=== PATIENT | female | born 1985 | race Caucasian/White ===

== ENCOUNTER 2023-12-06 09:42 | Outpatient (CLI) | payer BC ==
[2023-12-06 10:21] LABS: BASOPHILS % (AUTO) 0.6 % (0-1); EOSINOPHILS % (AUTO) 0.8 % (0-6); HEMATOCRIT 42.1 % (35.0-45.0); LYMPHOCYTES # (AUTO) 1.9 X10'3 (1.1-4.8); LYMPHOCYTES % (AUTO) 31.4 % (21-51); MEAN CORPUSCULAR HEMOGLOBIN 28.2 PG (27.0-31.0); MEAN CORPUSCULAR HGB CONC 33.1 g/dL (33.0-36.5); MEAN PLATELET VOLUME 8.3 FL (7.4-10.4); MONOCYTES # (AUTO) 0.3 X10'3 (0-0.9); MONOCYTES % (AUTO) 5.6 % (2-12); NEUTROPHILS # (AUTO) 3.6 X10'3 (1.8-7.7); NEUTROPHILS % (AUTO) 61.6 % (42-75); PLATELET COUNT 238 X10'3 (140-440); RED BLOOD COUNT 4.96 X10'6 (4.20-5.60); RED CELL DISTRIBUTION WIDTH 14.2 % (11.5-14.5); WHITE BLOOD COUNT 5.9 X10'3 (4.5-11.0)
[2023-12-06 10:33] LABS: HEMOGLOBIN A1C 5.5 % (4.5-6.2)
[2023-12-06 10:40] LABS: ALANINE AMINOTRANSFERASE 24 U/L (12-78); ALBUMIN 3.8 G/DL (3.4-5.0); ALBUMIN/GLOBULIN RATIO 1.1 (1.1-1.5); ALKALINE PHOSPHATASE 59 IU/L (46-116); ANION GAP 8 (8-16); ASPARTATE AMINO TRANSFERASE 20 U/L (10-37); BILIRUBIN,TOTAL 0.5 MG/DL (0.1-1.0); BLOOD UREA NITROGEN 14 MG/DL (7-18); BUN/CREATININE RATIO 17.9 (10.0-20.0); CHLORIDE 105 MMOL/L (99-107); CHOL/HDL RATIO 4.1 (0.00-4.99); CHOLESTEROL 211 MG/DL (0-200); CREATININE 0.78 MG/DL (0.40-0.90); GLUCOSE 108 MG/DL (70-104); HDL CHOLESTEROL 52 MG/DL (35-60); LDL CHOLESTEROL 134 MG/DL (50-100); POTASSIUM 3.9 MMOL/L (3.5-5.1); SODIUM 138 MMOL/L (135-145); THYROID STIMULATING HORMONE 2.45 ulU/ml (0.34-4.50); TOTAL CARBON DIOXIDE 25.3 MMOL/L (24-32); TOTAL PROTEIN 7.3 G/DL (6.4-8.2); TRIGLYCERIDES 87 MG/DL (20-135); eGFR 84 ML/MIN
== END 2023-12-06 23:59 | disposition home or self-care (01) ==
LOC: LAB 09:42
PROVIDERS: ATTEND Family Medicine
DX: E66.9 Obesity, unspecified (principal); J45.990 Exercise induced bronchospasm; Z82.49 Family history of ischemic heart disease and other diseases of the circulatory system
CPT/HCPCS: 36415; 80053; 80061; 83036; 84443; 85025

== ENCOUNTER 2024-01-10 14:30 | Outpatient (CLI) | payer BC | END 2024-01-10 23:59 | disposition home or self-care (01) | LOC: MRI02 14:30 | PROVIDERS: ATTEND Student in an Organized Health Care Education/Training Program | DX: M71.21 Synovial cyst of popliteal space [Baker], right knee (principal); M94.261 Chondromalacia, right knee; M25.361 Other instability, right knee; M25.561 Pain in right knee; Z87.828 Personal history of other (healed) physical injury and trauma | CPT/HCPCS: 73721 ==

== ENCOUNTER 2024-01-31 11:20 | Outpatient (CLI) | payer BC ==
[2024-01-31 12:46] LABS: FREE T4 (FREE THYROXINE) 1.02 NG/DL (0.73-1.40); THYROID STIMULATING HORMONE 1.98 ulU/ml (0.34-4.50)
[2024-02-03 07:09] LABS: FSH, SERUM 4.9 mIU/mL (.); LUTEINIZING HORMONE 17.3 mIU/mL (.); PROLACTIN 16.1 ng/mL (4.8-33.4)
== END 2024-01-31 23:59 | disposition home or self-care (01) ==
LOC: RAD 11:20
PROVIDERS: ATTEND Nurse Practitioner Family
DX: R53.83 Other fatigue (principal); N91.4 Secondary oligomenorrhea
CPT/HCPCS: 36415; 82397; 82679; 83001; 83002; 83525; 84146; 84402; 84439; 84443

== ENCOUNTER 2024-03-06 12:28 | Outpatient (CLI) | payer BC | END 2024-03-06 23:59 | disposition home or self-care (01) | LOC: CARD DIAG 12:28 | PROVIDERS: ATTEND Student in an Organized Health Care Education/Training Program | DX: I37.1 Nonrheumatic pulmonary valve insufficiency (principal); I51.7 Cardiomegaly; R06.00 Dyspnea, unspecified; E78.5 Hyperlipidemia, unspecified; R09.81 Nasal congestion; J34.9 Unspecified disorder of nose and nasal sinuses; Z82.49 Family history of ischemic heart disease and other diseases of the circulatory system | CPT/HCPCS: 93306 ==

== ENCOUNTER 2024-03-06 12:41 | Outpatient (CLI) | payer BC | END 2024-03-06 23:59 | disposition home or self-care (01) | LOC: RAD 12:41 | PROVIDERS: ATTEND Family Medicine | DX: R09.81 Nasal congestion (principal); J34.9 Unspecified disorder of nose and nasal sinuses | CPT/HCPCS: 70486 ==

== ENCOUNTER 2024-04-28 07:19 | Outpatient (CLI) | payer BC ==
[2024-04-28 08:13] LABS: BASOPHILS % (AUTO) 0.7 % (0-1); EOSINOPHILS # (AUTO) 0.1 X10'3 (0-0.9); EOSINOPHILS % (AUTO) 1.9 % (0-6); HEMATOCRIT 42.2 % (35.0-45.0); HEMOGLOBIN 14.5 g/dl (12.0-16.0); LYMPHOCYTES # (AUTO) 2.4 X10'3 (1.1-4.8); LYMPHOCYTES % (AUTO) 31.4 % (21-51); MEAN CORPUSCULAR HEMOGLOBIN 29.3 PG (27.0-31.0); MEAN CORPUSCULAR HGB CONC 34.3 g/dL (33.0-36.5); MEAN CORPUSCULAR VOLUME 85.4 FL (78-98); MEAN PLATELET VOLUME 8.3 FL (7.4-10.4); MONOCYTES # (AUTO) 0.5 X10'3 (0-0.9); MONOCYTES % (AUTO) 6.9 % (2-12); NEUTROPHILS # (AUTO) 4.4 X10'3 (1.8-7.7); NEUTROPHILS % (AUTO) 59.1 % (42-75); PLATELET COUNT 284 X10'3 (140-440); RED BLOOD COUNT 4.95 X10'6 (4.20-5.60); RED CELL DISTRIBUTION WIDTH 13.8 % (11.5-14.5); WHITE BLOOD COUNT 7.5 X10'3 (4.5-11.0)
[2024-04-28 08:38] LABS: ALANINE AMINOTRANSFERASE 26 U/L (12-78); ALBUMIN 3.7 G/DL (3.4-5.0); ALKALINE PHOSPHATASE 60 IU/L (46-116); ANION GAP 9 (8-16); ASPARTATE AMINO TRANSFERASE 12 U/L (10-37); BILIRUBIN,TOTAL 0.5 MG/DL (0.1-1.0); BLOOD UREA NITROGEN 12 MG/DL (7-18); CALCIUM 8.4 MG/DL (8.5-10.1); CHLORIDE 106 MMOL/L (99-107); CREATININE 0.86 MG/DL (0.40-0.90); GLUCOSE 105 MG/DL (70-104); POTASSIUM 3.7 MMOL/L (3.5-5.1); SODIUM 140 MMOL/L (135-145); THYROID STIMULATING HORMONE 3.68 ulU/ml (0.34-4.50); TOTAL PROTEIN 7.4 G/DL (6.4-8.2); eGFR 74 ML/MIN
[2024-04-30 05:21] LABS: FOLATE SERUM(FOLIC) 15.5 ng/mL (>3.0); FSH, SERUM 2.9 mIU/mL (.); PROGESTERONE 12.5 ng/mL (.); TESTOSTERONE, SERUM 35 ng/dL (8-60); THYROXINE (T4) 10.8 ug/dL (4.5-12.0); VITAMIN D, 25-HYDROXY 32.7 ng/mL (30.0-100.0)
== END 2024-04-28 23:59 | disposition home or self-care (01) ==
LOC: LAB 07:19
PROVIDERS: ATTEND Physician Assistant
DX: R10.2 Pelvic and perineal pain (principal); N94.6 Dysmenorrhea, unspecified; R53.83 Other fatigue; E55.9 Vitamin D deficiency, unspecified
CPT/HCPCS: 36415; 80053; 82306; 82607; 82627; 82670; 82746; 83001; 83525; 84144; 84402; 84403; 84436; 84443; 85025